=== PATIENT | female | born 2000 | race Caucasian/White ===

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

== ENCOUNTER 2020-01-22 18:39 | Emergency (ER) | payer MEDICAID ==
[~2020-01-22] VITALS: Ht 157.5 cm; Wt 45.4 kg
[~2020-01-22 18:39] MED LIST changes: -CLIN300C71 PO; -HYDR-4353 PO; +NAPR-56 PO
[2020-01-22 18:42] VITALS: BP 118/79
[2020-01-22] MEDS ORDERED: CLIN150C2 PO (20:55)
[2020-01-22] MEDS ORDERED: IBUP-1984 PO (20:55)
== END 2020-01-22 21:07 | disposition home or self-care (01) ==
LOC: ER 18:40
DX: K04.7 Periapical abscess without sinus (principal); Z87.442 Personal history of urinary calculi; Z88.0 Allergy status to penicillin; Z88.8 Allergy status to other drugs, medicaments and biological substances; Z79.899 Other long term (current) drug therapy
CPT/HCPCS: 99283

== ENCOUNTER 2022-04-11 03:10 | Emergency (ER) | payer MEDICAID ==
[~2022-04-11] VITALS: Ht 160 cm; Wt 45.5 kg
[~2022-04-11 03:10] MED LIST changes: +CLIN-197 PO; -CLIN300C11 PO; -NAPR-56 PO
[2022-04-11 03:23] VITALS: BP 115/69
== END 2022-04-11 04:14 | disposition left against medical advice (07) ==
LOC: ER 03:10
DX: R51.9 Headache, unspecified (principal); Z53.21 Procedure and treatment not carried out due to patient leaving prior to being seen by health care provider

== ENCOUNTER 2022-08-13 17:55 | Emergency (ER) | payer MEDICAID ==
[~2022-08-13] VITALS: Ht 157.5 cm; Wt 50.0 kg
[2022-08-13 18:31] VITALS: BP 129/80
[2022-08-13] MEDS ORDERED: LIDOcaine 1% 30ml preserv. free vial IJ ONE (19:05)
--- NOTE | 2022-08-13 19:09 | NUR ---
pt argumentative, she wanted me to just put steri strips on it and she wanted to go. Informed her she had to see the doctor first. It does need sutures, it is gapping.
== END 2022-08-13 19:48 | disposition home or self-care (01) ==
LOC: ER 17:56
DX: S91.111A Laceration without foreign body of right great toe without damage to nail, initial encounter (principal); Z87.442 Personal history of urinary calculi; Z88.0 Allergy status to penicillin; Z88.8 Allergy status to other drugs, medicaments and biological substances; Z79.899 Other long term (current) drug therapy; W22.8XXA Striking against or struck by other objects, initial encounter; Y93.89 Activity, other specified; Y92.89 Other specified places as the place of occurrence of the external cause; Y99.8 Other external cause status
CPT/HCPCS: 12002; 99282; A6449

== ENCOUNTER 2022-09-29 16:12 | Emergency (ER) | payer MEDICAID ==
[~2022-09-29] VITALS: Ht 157.5 cm; Wt 54.5 kg
[2022-09-29 16:19] VITALS: BP 126/86
== END 2022-09-29 16:59 ==
LOC: ER 16:13
DX: F10.129 Alcohol abuse with intoxication, unspecified (principal); Z87.442 Personal history of urinary calculi; Z72.89 Other problems related to lifestyle; Z88.0 Allergy status to penicillin; Z88.8 Allergy status to other drugs, medicaments and biological substances; Z79.899 Other long term (current) drug therapy; V87.7XXA Person injured in collision between other specified motor vehicles (traffic), initial encounter; Y93.89 Activity, other specified; Y92.89 Other specified places as the place of occurrence of the external cause; Y99.8 Other external cause status; Y90.9 Presence of alcohol in blood, level not specified
CPT/HCPCS: 99283

== ENCOUNTER 2022-10-15 10:49 | Emergency (ER) | payer MEDICAID ==
[~2022-10-15] VITALS: Ht 157.5 cm; Wt 50.0 kg
[~2022-10-15 10:49] MED LIST changes: +CLIN-214 PO; -CLIN150C8 PO
[2022-10-15 11:07] VITALS: BP 146/95
[2022-10-15 12:02] LABS: URINE HCG NEGATIVE (NEG)
== END 2022-10-15 13:23 | disposition home or self-care (01) ==
LOC: ER 10:49
DX: S82.62XA Displaced fracture of lateral malleolus of left fibula, initial encounter for closed fracture (principal); X58.XXXA Exposure to other specified factors, initial encounter; Y93.89 Activity, other specified; Y92.89 Other specified places as the place of occurrence of the external cause; Y99.8 Other external cause status
CPT/HCPCS: 73610; 81025; 99284; L4360; A6449

== ENCOUNTER 2022-12-19 14:39 | Emergency (ER) | payer MEDICAID ==
[~2022-12-19] VITALS: Ht 157.5 cm; Wt 51.8 kg
[2022-12-19 14:46] VITALS: TEMP 97.5
--- NOTE | 2022-12-19 15:29 | NUR ---
PT DECLINED TO REMOVE YELLOW BAND RING WITH STONE FROM 3RD DIGIT R HAND. RISKS AND BENEFITS DISCUSSED INCLUDING POTENTIAL TO COMPROMISE CIRCULATION TO FINGER R/T SWELLING FROM TRAUMATIC FRACTURE OF RUE/WRIST. PT CONTINUED TO DECLINED "YOUR NOT GOING TO REMOVE IT" PT IS UNABLE TO REMOVE RING HERSELF D/T SWELLING. CHARGE AARON LAZARO RN NOTIFIED.
[2022-12-19] MEDS ORDERED: morphine 2 MG/ML inj. syringe IV ONE (16:00)
[2022-12-19] MEDS ORDERED: ondansetron/PF 4mg/2ml inj IV ONE ×2 (16:00→18:15)
[2022-12-19] MEDS ORDERED: ketamine 10mg/ml 20ml inj vial IV ONE (16:25)
[2022-12-19] MEDS ORDERED: TETanus/Pertussis (Acell)/Diphther VAC/PF (Tdap-Adult) 0.5ml syringe IMVAC ONE ×2 (16:25→18:00)
--- NOTE | 2022-12-19 16:34 | NUR ---
PT REFUSING TETANUS VACCINE DESPITE BEING EDUCATED ABOUT THE RISKS OF INFECTION. RN WILL NOTIFY DR MIRELES.
[2022-12-19] MEDS ORDERED: morphine 4 MG/ML inj SYRINge IV ONE ×3 (16:35→18:15)
--- NOTE | 2022-12-19 16:40 | NUR ---
RN NOTIFIED DR MIRELES PT REFUSED TETANUS VACCINE.
--- NOTE | 2022-12-19 16:48 | NUR ---
SUPPLIES FOR SPLINT AND MOD SEDATION BEING BROUGHT TO BEDSIDE.
--- NOTE | 2022-12-19 17:36 | NUR ---
PT RESTING IN BED. C/O RIGHT WRIST PAIN. RT/RN/BELGICA/DR MIRELES AT BEDSIDE PREPARING FOR MOD SEDATION AND SPLINT PLACEMENT.
--- NOTE | 2022-12-19 18:26 | NUR ---
PT RING PLACED IN ORANGE CUP AND GIVEN BACK TO PT WHO GAVE IT TO HER FIANCE.
[2022-12-19] MEDS ORDERED: HYDR-3965 PO (18:58)
[2022-12-19] MEDS ORDERED: metoclopramide 5 mg/ml inj IV STA (19:34)
[2022-12-19] MEDS: morphine 2 MG/ML inj. syringe IV PRN ×2 (19:53→20:27)
[2022-12-19 21:22] VITALS: BP 153/107; PULSE 95; RESP 16; O2SAT 99
== END 2022-12-19 21:26 | disposition home or self-care (01) ==
LOC: ER 14:39
DX: S52.501A Unspecified fracture of the lower end of right radius, initial encounter for closed fracture (principal); F17.200 Nicotine dependence, unspecified, uncomplicated; Z72.89 Other problems related to lifestyle; Z87.442 Personal history of urinary calculi; Z87.81 Personal history of (healed) traumatic fracture; Z88.0 Allergy status to penicillin; Z88.8 Allergy status to other drugs, medicaments and biological substances; Z79.2 Long term (current) use of antibiotics; Z79.899 Other long term (current) drug therapy; W19.XXXA Unspecified fall, initial encounter; Y93.89 Activity, other specified; Y92.89 Other specified places as the place of occurrence of the external cause; Y99.8 Other external cause status
CPT/HCPCS: 25605; 73100; 73110; 90471; 96374; 96375; 96376; 99152; 99153; 99285; J2270; J2405; J2765; J3490; J7030; 90715; 94760; A4565; A6449

== ENCOUNTER 2023-01-10 20:46 | Emergency (ER) | payer MEDICAID ==
[~2023-01-10] VITALS: Ht 157.5 cm; Wt 50.0 kg
[~2023-01-10 20:46] MED LIST changes: +HYDR-3965 PO
[2023-01-10 21:14] VITALS: BP 156/111; PULSE 109; RESP 20; TEMP 97.9; O2SAT 99
[2023-01-10] MEDS ORDERED: HYDROcodone/acetaminophen 10/325mg tab PO ONE (23:45)
[2023-01-11] MEDS ORDERED: acetaminophen 325mg tablet PO ONE (00:05)
[2023-01-11 01:19] LABS: PLATELET COUNT 447 X10'3 (140-440); RED CELL DISTRIBUTION WIDTH 16.5 % (11.5-14.5)
[2023-01-11 01:21] LABS: BASOPHILS # (AUTO) 0.1 X10'3 (0-0.2); BASOPHILS % (AUTO) 0.7 % (0-1); EOSINOPHILS # (AUTO) 0.2 X10'3 (0-0.9); EOSINOPHILS % (AUTO) 2.5 % (0-6); HEMATOCRIT 38.7 % (35.0-45.0); HEMOGLOBIN 13.3 g/dl (12.0-16.0); LYMPHOCYTES # (AUTO) 2.6 X10'3 (1.1-4.8); LYMPHOCYTES % (AUTO) 29.1 % (21-51); MEAN CORPUSCULAR HEMOGLOBIN 31.9 PG (27.0-31.0); MEAN CORPUSCULAR HGB CONC 34.4 g/dL (33.0-36.5); MEAN CORPUSCULAR VOLUME 92.8 FL (78-98); MEAN PLATELET VOLUME 8.1 FL (7.4-10.4); MONOCYTES # (AUTO) 0.9 X10'3 (0-0.9); MONOCYTES % (AUTO) 10.6 % (2-12); NEUTROPHILS # (AUTO) 5.1 X10'3 (1.8-7.7); NEUTROPHILS % (AUTO) 57.1 % (42-75); RED BLOOD COUNT 4.17 X10'6 (4.20-5.60); WHITE BLOOD COUNT 8.9 X10'3 (4.5-11.0)
== END 2023-01-11 01:52 | disposition home or self-care (01) ==
LOC: ER 20:46
DX: S52.91XG Unspecified fracture of right forearm, subsequent encounter for closed fracture with delayed healing (principal); X58.XXXD Exposure to other specified factors, subsequent encounter; R10.9 Unspecified abdominal pain
CPT/HCPCS: 36415; 73110; 84702; 85025; 86885; 86900; 86901; 99284

== ENCOUNTER 2023-02-22 17:21 | Emergency (ER) | payer MEDICAID ==
[~2023-02-22] VITALS: Ht 157.5 cm; Wt 52.8 kg
[~2023-02-22 17:21] MED LIST changes: -HYDR-3965 PO
--- NOTE | 2023-02-22 17:48 | NUR ---
Attempted to call for triage not in lobby
[2023-02-22 18:03] VITALS: BP 139/99; PULSE 112; RESP 15; TEMP 97.9; O2SAT 100
[2023-02-22 18:24] LABS: URINE HCG POSITIVE (NEG)
== END 2023-02-23 01:39 | disposition left against medical advice (07) ==
LOC: ER 17:22
DX: O26.899 Other specified pregnancy related conditions, unspecified trimester (principal); Z53.21 Procedure and treatment not carried out due to patient leaving prior to being seen by health care provider
CPT/HCPCS: 81025; 99281

== ENCOUNTER 2023-08-28 14:42 | Emergency (ER) | payer MEDICAID ==
[~2023-08-28] VITALS: Ht 157.5 cm; Wt 60.0 kg
[2023-08-28 15:06] VITALS: BP 136/91; PULSE 131; TEMP 97.4; O2SAT 97
[2023-08-28 15:40] LABS: BASOPHILS # (AUTO) 0.1 X10'3 (0-0.2); BASOPHILS % (AUTO) 0.8 % (0-1); EOSINOPHILS # (AUTO) 0.2 X10'3 (0-0.9); EOSINOPHILS % (AUTO) 1.2 % (0-6); HEMATOCRIT 42.3 % (35.0-45.0); HEMOGLOBIN 14.3 g/dl (12.0-16.0); LYMPHOCYTES # (AUTO) 5.9 X10'3 (1.1-4.8); LYMPHOCYTES % (AUTO) 41.9 % (21-51); MEAN CORPUSCULAR HGB CONC 33.7 g/dL (33.0-36.5); MEAN PLATELET VOLUME 8.2 FL (7.4-10.4); MONOCYTES # (AUTO) 1.2 X10'3 (0-0.9); MONOCYTES % (AUTO) 8.6 % (2-12); NEUTROPHILS # (AUTO) 6.7 X10'3 (1.8-7.7); NEUTROPHILS % (AUTO) 47.5 % (42-75); PLATELET COUNT 408 X10'3 (140-440); RED CELL DISTRIBUTION WIDTH 14.3 % (11.5-14.5); WHITE BLOOD COUNT 14.2 X10'3 (4.5-11.0)
[2023-08-28] MEDS: normal saline 1000ML IV soln IVB ONE (15:55)
[2023-08-28 16:02] VITALS: RESP 16
[2023-08-28 16:06] LABS: ALANINE AMINOTRANSFERASE 12 U/L (12-78); ALBUMIN 3.7 G/DL (3.4-5.0); ALBUMIN/GLOBULIN RATIO 0.8 (1.1-1.5); ALKALINE PHOSPHATASE 95 IU/L (46-116); ANION GAP 15 (8-16); ASPARTATE AMINO TRANSFERASE 15 U/L (10-37); BILIRUBIN,TOTAL 0.1 MG/DL (0.1-1.0); BLOOD UREA NITROGEN 13 MG/DL (7-18); BUN/CREATININE RATIO 14.6 (10.0-20.0); CALCIUM 9.1 MG/DL (8.5-10.1); CHLORIDE 104 MMOL/L (99-107); CREATININE 0.89 MG/DL (0.40-0.90); GLUCOSE 97 MG/DL (70-104); LIPASE 29 U/L (16-77); POTASSIUM 3.8 MMOL/L (3.5-5.1); SODIUM 140 MMOL/L (135-145); TOTAL CARBON DIOXIDE 21.3 MMOL/L (24-32); TOTAL PROTEIN 8.3 G/DL (6.4-8.2); eCRCL 78 ML/MIN; eGFR 79 ML/MIN
[2023-08-28 17:52] LABS: BETA HCG,QUANTITATIVE < 1.0 mIU/ml
== END 2023-08-28 18:26 | disposition home or self-care (01) ==
LOC: ER 14:43
DX: R10.9 Unspecified abdominal pain (principal); Z88.0 Allergy status to penicillin; Z88.8 Allergy status to other drugs, medicaments and biological substances; Z79.1 Long term (current) use of non-steroidal anti-inflammatories (NSAID); Z79.2 Long term (current) use of antibiotics
CPT/HCPCS: 36415; 76770; 76801; 76830; 80053; 83690; 84702; 85025; 93976; 96360; 99284; J7030

== ENCOUNTER 2023-09-03 11:22 | Emergency (ER) | payer MEDICAID ==
[~2023-09-03] VITALS: Ht 157.5 cm; Wt 62.4 kg
[2023-09-03 11:23] VITALS: BP 131/87; PULSE 108; RESP 16; TEMP 98.5; O2SAT 98
[2023-09-03] MEDS ORDERED: NAPR-56 PO (12:00)
[2023-09-03] MEDS ORDERED: DOXY-1 PO (12:00)
== END 2023-09-03 12:08 | disposition home or self-care (01) ==
LOC: ER 11:23
DX: K04.7 Periapical abscess without sinus (principal); Z88.0 Allergy status to penicillin; Z88.8 Allergy status to other drugs, medicaments and biological substances; Z79.2 Long term (current) use of antibiotics; Z79.899 Other long term (current) drug therapy; Z72.89 Other problems related to lifestyle
CPT/HCPCS: 99283

== ENCOUNTER 2024-05-18 13:27 | Emergency (ER) | payer MEDICAID ==
[~2024-05-18] VITALS: Ht 157.5 cm; Wt 57.0 kg
[2024-05-18 13:34] VITALS: BP 129/81; PULSE 113; RESP 18; TEMP 98.4; O2SAT 100
== END 2024-05-18 17:21 | disposition left against medical advice (07) ==
LOC: ER 13:28
DX: O26.899 Other specified pregnancy related conditions, unspecified trimester (principal); Z88.0 Allergy status to penicillin; Z88.8 Allergy status to other drugs, medicaments and biological substances; Z53.21 Procedure and treatment not carried out due to patient leaving prior to being seen by health care provider

== ENCOUNTER 2025-04-16 03:47 | Emergency (ER) | payer MEDICAID ==
[~2025-04-16] VITALS: Ht 157.5 cm; Wt 57.2 kg
[2025-04-16 04:05] VITALS: BP 134/91; PULSE 75; RESP 16; TEMP 98.2; O2SAT 100
[2025-04-16] MEDS ORDERED: morphine 4 MG/ML inj SYRINge IV ONE (04:25)
[2025-04-16] MEDS ORDERED: ondansetron/PF 4mg/2ml inj IV ONE (04:25)
[2025-04-16] MEDS ORDERED: normal saline 1000ml 1,000 ML IV ONE (04:25)
--- NOTE | 2025-04-16 04:30 | Physician Documentation ---
History of Present Illness General Chief Complaint: Abdominal Pain Stated Complaint: ABD PAIN Primary Medical Doctor: SEN CHOI IN History of Present Illness Initial Comments This is a pleasant 24-year-old female who is four months , presents fo r evaluation of sudden onset right lower quadrant abdominal pain for the last 2 hours accompanied by nausea or vomiting. She states that she has been experienced nausea, vomiting for the last five days, had gone to [facility] where she was diagnosed with a urinary tract infection started on antibiotics. Her symptoms have completely resolved and she was fine this mor reshma. She was woke him from sleep with a severe right lower quadrant abdominal pain, nonradiating, not migratory, no particular palliating or aggravating factors. Did not attempt to treat it. Denies any other symptoms. Denies vaginal bleeding or discharge. She is not breast-feeding, but has a snot had her period since delivery of the child. She thinks she might be . Medication Reconciliation Allergies: Coded Allergies: Penicillins (Verified Allergy, Severe, Shock, 01/10/23) lamotrigine (Verified Allergy, Unknown, swollen, 01/10/23) Scheduled Acetaminophen with Codeine (Tylenol with Codeine #3 Tablet), 1 TABLET PO Q4H Clindamycin HCl (Clindamycin HCl), 1 CAP PO TID Clindamycin HCl (Clindamycin HCl CAPSULE), 1 CAP PO QID Meloxicam (Mobic), 7.5 MG PO DAILY Ondansetron Hcl (Zofran), 1 TAB PO Q8H Scheduled PRN Ondansetron Hcl (Zofran), 1 TAB PO Q8H PRN for NAUSEA Past Medical History Past Medical History: Kidney Stones, Extremity Fracture Past Surgical History: no surgical history Other Past Family History: NONE Smoking: Cigarettes Alcohol Use: Occasionally Drug Use: none Lives with: Mother, Family Lives In: Home Occupation: student Review of Systems ROS 10 point review of systems was performed and unless noted above in HPI is negative for acute process/complaint. Physical Exam Physical Exam Vital Signs: Temperature: 98.2, Heart Rate: 75, Respiratory Rate: 16, BP: 134/91, Pulse Oximetry: 100, Weight: 57.200 Oxygen Flow Rate: 0 Physical Exam GENERAL: Awake, alert, oriented, GCS 15, no apparent distress, non-toxic appearing, answers questions, follows commands appropriately. Examined in triage HEENT: Atraumatic, normocephalic, pupils equal, extraocular muscles intact, sclerae anicteric, mucus membranes moist, oropharynx is clear, no stridor. NECK: supple, full active range of motion, trachea midline, no thyromegaly, no lymphadenopathy, no JVD. CARDIOVASCULAR: regular rate/rhythm, no murmurs/gallops/rubs, Pulses are 2+ in all extremities and symmetric. Capillary refill less than 2 seconds. PULMONARY: Nonlabored, good air movement ,no respiratory distress, speaking in full sentences, clear to auscultation bilaterally, no wheezing, no ronchi, no rales, no accessory muscle use. GASTROINTESTINAL: Soft, right lower quadrant tenderness to palpation without guarding or rebound reproducing chief complaint, non-distended, normal active bowel sounds, no organomegaly, no pulsatile masses, no CVA tenderness. NEUROLOGIC: Lucid with normal mental status. Normal facial symmetry. Moves all extremities symmetrically and with purpose. No truncal ataxia. Speech is fluid without evidence of dysarthria or aphasia, no focal deficits appreciated. MUSCULOSKELETAL: There is full range of motion of all extremities. There is no joint pain or joint swelling or joint erythema. There is no muscle pain or tenderness or swelling. EXTREMITIES: warm, well-perfused, no cyanosis, no clubbing, no edema, no acute deformities. Skin: warm, dry, no rashes or lesions, no jaundice, no petechiae orpurpura. No ecchymosis. PSYCHIATRIC: Normal affect, normal insight, normal concentration. Focused exam: [] Progress Results/Orders Results/Orders Orders - CARLOS ALBERTO PRICE DO Urinalysis, Cult If Indicated (04/16/25 04:05) Hcg, Ur Ql (04/16/25 04:05) Cbc/Diff (04/16/25 04:05) Lipase (04/16/25 04:05) CMP (04/16/25 04:05) Vital Signs 04/16/25 04:05 Temp 98.2 Pulse 75 Resp 16 B/P (MAP) 134/91 Pulse Ox 100 O2 Flow Rate 0 Medical Decision Making Additional information obtaine: old records Findings Facility Status: ED Holds, PENDING SALE TO [facility] process The plan was discussed with the patient, who demonstrates clear understanding of the plan and is in agreement with the plan unless otherwise noted in the chart. All questions have been answered, all concerns were addressed unless otherwise documented. I was available throughout their ED stay for frequent reassessment and ques tions. Differential Diagnoses (considered and possible or likely): [Differential diag nosis considered includes acute appendicitis, acute cholecystitis, pancreatitis, gastritis, PUD, diverticulitis, mesenteric ischemia, abdominal aortic aneurysm, bowel obstruction, enteritis, colitis, fecal impaction, volvulus, IBS, inflammatory bowel disease, specific food intolerance, peritonitis, perforated viscous, malignancy, UTI, abscess, and abdominal pain NOS. Pelvic source of pain was also considered including endometritis, dysmenorrhea, ovarian cyst, ovarian torsion, PID, TOA, cervicitis, vaginitis, or uterine fibroid. History, physical exam, and workup exclude many of the more serious causes listed above. ] ??Differential Diagnoses (considered and unlikely, not requiring evaluation currently): [See above] MDM Data Please see [facility] for the following: Independent Historians and external Records Review. Historian: [Patient] Independent Historians: ?[Record review] Medication Management: [Reviewed medication list] Social History and determinants: [Reviewed] Please see the body of the note for the following: Any independent interpretations of ECG, imaging studies. All vitals signs/haemodynamics, ordered tests were independently reviewed and interpreted by myself. Nursing triage complaint and vitals reviewed, additional nursing notes were reviewed as available and I agree unless otherwise noted or documented in contradiction in the chart Vital Signs: Independently reviewed Labs: Independently interpreted Imaging: Independently interpreted Old Medical Records: Independently reviewed, see HPI for relevant summary and information Pulse Oximetry: [99%] interpreted as [normal on room air] by me [Visual Basic Programmer: [Regular Rate, Regular rhythm, no ectopy, NSR] reviewed and interpreted by me] Additionally notably showing: [] Tests considered but not ordered include: [] Social Determinants of Health Impact: Patient was evaluated in [facility], [facility] [place] due to below par ratio of patient to medical providers. [] Comorbid Conditions Impacting Present Evaluation and Care/Treatment: [Four m onths ] Management Discussions with other Healthcare Providers: [] Treatment and Disposition Medication Management (Given or considered): [Pain management and nausea management]. See EMR for details Consideration for Hospitalization/Escalation/Deescalation of Care: Admission for observation has been considered, [however the patient is able to tolerate p.o., their symptoms are controlled, they are able to rely on oral medications, and their chief complaint/diagnosis can be managed on outpatient basis.] ?ED Course:?[] ?Shared decision making:?[] Code status:?FULL Please see the full Electronic Medical Record for full details of nursing documentation, medications list, other records of complete past medical history and conditions, vital signs, laboratory studies, and any radiologic study interpretations by radiologists. Portions of this note were completed using [employer] dictation software and as a result there may exist minor errors in spelling. I have reviewed elements of past family and social history and agree as included in note. Differential Diagnosis See body of the main note for differential diagnosis Departure Impression: Primary Impression: Right lower quadrant abdominal pain Additional Impressions: Nausea and vomiting Amenorrhea Referrals: NO PRIMARY CARE PROVIDER (PCP) Signature Scribe Signature: No scribe Attestation: The note accurately reflects work and decisions made by me.Carlos Alberto Price DO 04/16/25 04:29 CARLOS ALBERTO PRICE DO Apr 16, 2025 04:30
[2025-04-16 04:42] LABS: LEUKOCYTE ESTERASE ,URINE SMALL (Neg); NITRITES, URINE NEGATIVE (Neg); OCCULT BLOOD,URINE NEGATIVE (Neg)
[2025-04-16 04:44] LABS: URINE HCG NEGATIVE (NEG)
[2025-04-16 04:54] LABS: UA COLLECTION TYPE NON-SPECIFIED
[2025-04-16 05:18] LABS: SQUAMOUS EPITHELIAL CELL,UR FEW /LPF (FEW)
== END 2025-04-16 05:53 | disposition left against medical advice (07) ==
LOC: ER 03:47
DX: N91.2 Amenorrhea, unspecified (principal); R11.2 Nausea with vomiting, unspecified; R10.31 Right lower quadrant pain; F17.210 Nicotine dependence, cigarettes, uncomplicated; Z87.442 Personal history of urinary calculi; Z88.0 Allergy status to penicillin; Z88.8 Allergy status to other drugs, medicaments and biological substances; Z79.899 Other long term (current) drug therapy; Z72.89 Other problems related to lifestyle
CPT/HCPCS: 81001; 81025; 87088; 99283